=== PATIENT | male | born 1940 | race African-American/Black ===

== ENCOUNTER 2019-07-31 23:22 | Inpatient (IN) ==
[2019-08-01] MEDS ORDERED: ONDANSETRON 4 MG/2 ML VIAL IV PRN (00:34)
[2019-08-01] MEDS ORDERED: ACETAMINOPHEN 325 MG TABLET PO PRN (00:34)
[2019-08-01] MEDS ORDERED: SODIUM POLYSTYRENE SULFATE 15 GM/60 ML BOTTLE PO ONE (01:20)
[2019-08-01] MEDS ORDERED: INFLUENZA VIRUS VACCINE 0.5 ML SYRINGE IM ONE (03:15)
[2019-08-01] MEDS: cefTRIAXone 1,000 MG in SYRINGE 1 EACH IV SCH (03:46)
[2019-08-01 06:04] LABS: Basophils % 0.2 % (0.0-0.8); Eosinophils # 0.2 10*3/uL (0.0-0.87); Eosinophils % 2.4 % (0.00-10.9); Hematocrit 33.9 VOL% (42.0-52.0); Hemoglobin 10.4 GM/DL (14.0-18.0); Immature Granulocytes % 0.2 %; Immature Granulocytes Absolute 0.02 #; Lymphocytes # 1.8 10*3/uL (1.4-4.0); Lymphocytes % 21.8 % (21.2-54.2); Mean Corpuscular HGB Conc 30.7 GM/DL (32-36); Mean Corpuscular Volume 87.4 FL (87-102); Mean Platelet Volume 10.2 FL (9.6-12.0); Monocytes % 12.7 % (1.7-12.7); Neutrophils % 62.7 % (38.7-73.9); Platelet Count 210 T/CUMM (130-400); Red Blood Count 3.88 MC/CUMM (3.8-5.5); Red Cell Distribution Width 15.3 % (9.3-17.3); White Blood Count 8.3 T/CUMM (4-12)
[2019-08-01 06:36] LABS: Albumin 2.7 G/DL (3.4-5.0); Bilirubin,Total 0.7 MG/DL (0.2-1.0); Calcium 9.8 MG/DL (8.5-10.1); Osmolality,Calculated 303.8 MOS/KG (273-304); Total Protein 7.4 G/DL (6.4-8.3)
[2019-08-01] MEDS: ALBUTEROL/IPRATROPIUM 3 ML NEB RESP TX SCH ×3 (07:31→20:09)
[2019-08-01] MEDS: PANTOPRAZOLE 40 MG TABLET PO SCH (08:28)
[2019-08-01] MEDS: predniSONE 20 MG TABLET PO SCH (08:28)
[2019-08-01] MEDS: ENOXAPARIN 40 MG/0.4 ML SYRINGE SUBCUT SCH (08:28)
[2019-08-01] MEDS ORDERED: NITROGLYCERIN SL 0.4 MG TABLET SL PRN (08:44)
[2019-08-01] MEDS: LACTOBACILLUS ACIDOPHILUS/BULGARICUS CAPLET PO SCH ×2 (09:41→20:29)
[2019-08-01] MEDS: LOSARTAN 50 MG TABLET PO SCH (09:41)
[2019-08-01] MEDS: MULTIVITAMIN (CENTRUM) TABLET PO SCH (09:41)
[2019-08-01] MEDS: ASPIRIN EC 81 MG TABLET PO SCH (09:41)
[2019-08-01] MEDS: FERROUS SULFATE 325 MG TABLET PO SCH (09:41)
[2019-08-01] MEDS: CITALOPRAM 20 MG TABLET PO SCH (09:41)
[2019-08-01] MEDS: TAMSULOSIN 0.4 MG CAPSULE PO SCH (09:42)
[2019-08-01] MEDS: amLODIPine 10 MG TABLET PO SCH (09:42)
[2019-08-01] MEDS: MAGNESIUM HYDROXIDE SUSP 30 ML UDCUP PO SCH (09:42)
[2019-08-01] MEDS: POLYETHYLENE GLYCOL POWDER 17 GM PACK PO SCH (09:42)
[2019-08-01] MEDS: GABAPENTIN 100 MG CAPSULE PO SCH ×3 (09:42→20:29)
[2019-08-01] MEDS: FUROSEMIDE 20 MG/2 ML VIAL IV SCH (09:45)
[2019-08-01] MEDS: PIOGLITAZONE 15 MG TABLET PO SCH (10:57)
[2019-08-01] MEDS: KETOCONAZOLE 2% CREAM 30 GM TUBE TOP SCH (10:57)
[2019-08-01] MEDS: MENTHOL/ZINC OXIDE OINT 71 GM JAR TOP SCH ×3 (10:57→20:30)
[2019-08-01] MEDS: MORPHINE 4 MG/1 ML VIAL IV PRN ×2 (11:16→16:18)
[2019-08-01] MEDS ORDERED: GLUCAGON 1 MG VIAL IM PRN (14:52)
[2019-08-01] MEDS ORDERED: DEXTROSE 50% 25 GM/50 ML VIAL IV PRN (14:52)
[2019-08-01] MEDS ORDERED: ALBUTEROL/IPRATROPIUM 3 ML NEB RESP TX PRN (14:56)
[2019-08-01] MEDS ORDERED: ACETIC ACID 0.25% IRRIGATION 1,000 ML BOTTLE IRRIG SCH (15:00)
[2019-08-01] MEDS: INSULIN LISPRO 100 UNIT/ML SUBCUT SCH ×2 (16:17→20:44)
[2019-08-01] MEDS: MEMANTINE 10 MG TABLET PO SCH (20:30)
[2019-08-01] MEDS: ATORVASTATIN 20 MG TABLET PO SCH (20:30)
[2019-08-01] MEDS: DONEPEZIL 5 MG TABLET PO SCH (20:30)
[2019-08-01] MEDS: BUDESONIDE/FORMOTEROL 160-4.5 INHALER 6 GM INH SCH (20:31)
[2019-08-02] MEDS: ALBUTEROL/IPRATROPIUM 3 ML NEB RESP TX SCH ×4 (00:08→19:29)
[2019-08-02 05:39] LABS: Basophils % 0.2 % (0.0-0.8); Eosinophils # 0.1 10*3/uL (0.0-0.87); Eosinophils % 0.9 % (0.00-10.9); Hematocrit 32.1 VOL% (42.0-52.0); Hemoglobin 9.9 GM/DL (14.0-18.0); Immature Granulocytes % 0.2 %; Immature Granulocytes Absolute 0.02 #; Lymphocytes # 1.4 10*3/uL (1.4-4.0); Lymphocytes % 16.6 % (21.2-54.2); Mean Corpuscular HGB Conc 30.8 GM/DL (32-36); Mean Platelet Volume 10.7 FL (9.6-12.0); Monocytes % 11.1 % (1.7-12.7); Platelet Count 203 T/CUMM (130-400); Red Blood Count 3.69 MC/CUMM (3.8-5.5); Red Cell Distribution Width 14.8 % (9.3-17.3); White Blood Count 8.2 T/CUMM (4-12)
[2019-08-02 05:53] LABS: Calcium 9.7 MG/DL (8.5-10.1); Osmolality,Calculated 303.4 MOS/KG (273-304)
[2019-08-02] MEDS: GABAPENTIN 100 MG CAPSULE PO SCH ×3 (08:13→20:54)
[2019-08-02] MEDS: MULTIVITAMIN (CENTRUM) TABLET PO SCH (08:13)
[2019-08-02] MEDS: MEMANTINE 10 MG TABLET PO SCH ×2 (08:13→20:54)
[2019-08-02] MEDS: PIOGLITAZONE 15 MG TABLET PO SCH (08:13)
[2019-08-02] MEDS: PANTOPRAZOLE 40 MG TABLET PO SCH (08:14)
[2019-08-02] MEDS: LEVOTHYROXINE 25 MCG TABLET PO SCH (08:14)
[2019-08-02] MEDS: ASPIRIN EC 81 MG TABLET PO SCH (08:14)
[2019-08-02] MEDS: LOSARTAN 50 MG TABLET PO SCH (08:14)
[2019-08-02] MEDS: LACTOBACILLUS ACIDOPHILUS/BULGARICUS CAPLET PO SCH ×2 (08:14→20:54)
[2019-08-02] MEDS: predniSONE 20 MG TABLET PO SCH (08:14)
[2019-08-02] MEDS: FERROUS SULFATE 325 MG TABLET PO SCH (08:14)
[2019-08-02] MEDS: TAMSULOSIN 0.4 MG CAPSULE PO SCH (08:15)
[2019-08-02] MEDS: POLYETHYLENE GLYCOL POWDER 17 GM PACK PO SCH (08:15)
[2019-08-02] MEDS: amLODIPine 10 MG TABLET PO SCH (08:15)
[2019-08-02] MEDS: INSULIN LISPRO 100 UNIT/ML SUBCUT SCH ×4 (08:15→21:46)
[2019-08-02] MEDS: ENOXAPARIN 40 MG/0.4 ML SYRINGE SUBCUT SCH (08:15)
[2019-08-02] MEDS: MAGNESIUM HYDROXIDE SUSP 30 ML UDCUP PO SCH (08:15)
[2019-08-02] MEDS: BUDESONIDE/FORMOTEROL 160-4.5 INHALER 6 GM INH SCH ×2 (08:19→20:53)
[2019-08-02] MEDS: cefTRIAXone 1,000 MG in SYRINGE 1 EACH IV SCH (08:21)
[2019-08-02] MEDS: MENTHOL/ZINC OXIDE OINT 71 GM JAR TOP SCH ×3 (08:38→20:54)
[2019-08-02] MEDS: ACETIC ACID 0.25% IRRIGATION 1,000 ML BOTTLE IRRIG SCH (08:38)
[2019-08-02] MEDS: KETOCONAZOLE 2% CREAM 30 GM TUBE TOP SCH (08:38)
[2019-08-02] MEDS: FUROSEMIDE 20 MG/2 ML VIAL IV SCH (08:38)
[2019-08-02] MEDS: MORPHINE 4 MG/1 ML VIAL IV PRN (10:01)
[2019-08-02] MEDS ORDERED: BISACODYL 10 MG SUPP RECTAL ONE (14:00)
[2019-08-02] MEDS: ATORVASTATIN 20 MG TABLET PO SCH (20:54)
[2019-08-02] MEDS: DONEPEZIL 5 MG TABLET PO SCH (20:54)
[2019-08-03] MEDS: ALBUTEROL/IPRATROPIUM 3 ML NEB RESP TX SCH ×4 (00:56→20:24)
[2019-08-03] MEDS ORDERED: INSULIN LISPRO 100 UNIT/ML SUBCUT ONE (01:05)
[2019-08-03] MEDS: MORPHINE 4 MG/1 ML VIAL IV PRN (02:50)
[2019-08-03] MEDS ORDERED: INSULIN REGULAR 100 UNIT/ML SUBCUT ONE (03:39)
[2019-08-03 04:31] LABS: Basophils % 0.1 % (0.0-0.8); Eosinophils % 0.4 % (0.00-10.9); Hematocrit 32.2 VOL% (42.0-52.0); Immature Granulocytes % 0.4 %; Immature Granulocytes Absolute 0.03 #; Lymphocytes # 0.9 10*3/uL (1.4-4.0); Lymphocytes % 12.1 % (21.2-54.2); Mean Corpuscular HGB Conc 31.1 GM/DL (32-36); Mean Corpuscular Volume 87.7 FL (87-102); Monocytes % 8.8 % (1.7-12.7); Neutrophils % 78.2 % (38.7-73.9); Platelet Count 193 T/CUMM (130-400); Red Blood Count 3.67 MC/CUMM (3.8-5.5); Red Cell Distribution Width 14.6 % (9.3-17.3); White Blood Count 7.5 T/CUMM (4-12)
[2019-08-03 04:51] LABS: Calcium 9.9 MG/DL (8.5-10.1); Osmolality,Calculated 309.5 MOS/KG (273-304)
[2019-08-03] MEDS: LEVOTHYROXINE 25 MCG TABLET PO SCH (06:34)
[2019-08-03] MEDS: MAGNESIUM HYDROXIDE SUSP 30 ML UDCUP PO SCH (08:19)
[2019-08-03] MEDS: MULTIVITAMIN (CENTRUM) TABLET PO SCH (08:20)
[2019-08-03] MEDS: ASPIRIN EC 81 MG TABLET PO SCH (08:20)
[2019-08-03] MEDS: predniSONE 20 MG TABLET PO SCH (08:20)
[2019-08-03] MEDS: FERROUS SULFATE 325 MG TABLET PO SCH (08:20)
[2019-08-03] MEDS: LOSARTAN 50 MG TABLET PO SCH (08:20)
[2019-08-03] MEDS: amLODIPine 10 MG TABLET PO SCH (08:20)
[2019-08-03] MEDS: POLYETHYLENE GLYCOL POWDER 17 GM PACK PO SCH (08:20)
[2019-08-03] MEDS: PIOGLITAZONE 15 MG TABLET PO SCH (08:21)
[2019-08-03] MEDS: PANTOPRAZOLE 40 MG TABLET PO SCH (08:21)
[2019-08-03] MEDS: TAMSULOSIN 0.4 MG CAPSULE PO SCH (08:21)
[2019-08-03] MEDS: LACTOBACILLUS ACIDOPHILUS/BULGARICUS CAPLET PO SCH ×2 (08:21→21:04)
[2019-08-03] MEDS: GABAPENTIN 100 MG CAPSULE PO SCH ×3 (08:21→21:04)
[2019-08-03] MEDS: MEMANTINE 10 MG TABLET PO SCH ×2 (08:21→21:04)
[2019-08-03] MEDS: BUDESONIDE/FORMOTEROL 160-4.5 INHALER 6 GM INH SCH ×2 (08:27→21:03)
[2019-08-03] MEDS: ENOXAPARIN 40 MG/0.4 ML SYRINGE SUBCUT SCH (08:27)
[2019-08-03] MEDS: MENTHOL/ZINC OXIDE OINT 71 GM JAR TOP SCH ×3 (08:29→21:06)
[2019-08-03] MEDS: INSULIN REGULAR 100 UNIT/ML SUBCUT SCH ×4 (08:29→21:05)
[2019-08-03] MEDS: ACETIC ACID 0.25% IRRIGATION 1,000 ML BOTTLE IRRIG SCH (08:29)
[2019-08-03] MEDS: CITALOPRAM 20 MG TABLET PO SCH (08:29)
[2019-08-03] MEDS: FUROSEMIDE 20 MG/2 ML VIAL IV SCH (08:30)
[2019-08-03] MEDS: cefTRIAXone 1,000 MG in SYRINGE 1 EACH IV SCH (08:31)
[2019-08-03] MEDS: KETOCONAZOLE 2% CREAM 30 GM TUBE TOP SCH (08:34)
[2019-08-03] MEDS ORDERED: LACTULOSE 20 GM/30 ML UDCUP PO ONE (10:09)
[2019-08-03] MEDS ORDERED: SODIUM POLYSTYRENE SULFATE 15 GM/60 ML BOTTLE PO STA (10:35)
[2019-08-03] MEDS: methylPREDNISolone SOD SUC 40 MG/1 ML VIAL IV SCH ×2 (11:16→23:21)
[2019-08-03] MEDS: INSULIN LISPRO 100 UNIT/ML SUBCUT SCH ×2 (12:10→16:26)
[2019-08-03] MEDS ORDERED: INSULIN GLARGINE 100 UNIT/ML SUBCUT SCH (21:00)
[2019-08-03] MEDS: ATORVASTATIN 20 MG TABLET PO SCH (21:04)
[2019-08-03] MEDS: DONEPEZIL 5 MG TABLET PO SCH (21:04)
[2019-08-04] MEDS: ALBUTEROL/IPRATROPIUM 3 ML NEB RESP TX SCH ×4 (00:05→20:14)
[2019-08-04 05:34] LABS: Calcium 9.5 MG/DL (8.5-10.1); Osmolality,Calculated 296.8 MOS/KG (273-304)
[2019-08-04] MEDS: LEVOTHYROXINE 25 MCG TABLET PO SCH (07:07)
[2019-08-04] MEDS ORDERED: ERGOCALCIFEROL 50,000 UNIT CAPSULE PO SCH (09:00)
[2019-08-04 09:08] LABS: Calcium 9.3 MG/DL (8.5-10.1); Osmolality,Calculated 301.8 MOS/KG (273-304)
[2019-08-04] MEDS: INSULIN REGULAR 100 UNIT/ML SUBCUT SCH ×4 (10:04→21:08)
[2019-08-04] MEDS: cefTRIAXone 1,000 MG in SYRINGE 1 EACH IV SCH ×2 (10:05→10:53)
[2019-08-04] MEDS: INSULIN LISPRO 100 UNIT/ML SUBCUT SCH ×3 (10:05→16:27)
[2019-08-04] MEDS: FUROSEMIDE 20 MG/2 ML VIAL IV SCH ×2 (10:05→10:53)
[2019-08-04] MEDS: methylPREDNISolone SOD SUC 40 MG/1 ML VIAL IV SCH ×3 (10:05→21:08)
[2019-08-04] MEDS: LACTOBACILLUS ACIDOPHILUS/BULGARICUS CAPLET PO SCH ×2 (10:06→21:09)
[2019-08-04] MEDS: POLYETHYLENE GLYCOL POWDER 17 GM PACK PO SCH (10:06)
[2019-08-04] MEDS: ASPIRIN EC 81 MG TABLET PO SCH (10:06)
[2019-08-04] MEDS: ENOXAPARIN 40 MG/0.4 ML SYRINGE SUBCUT SCH (10:06)
[2019-08-04] MEDS: BUDESONIDE/FORMOTEROL 160-4.5 INHALER 6 GM INH SCH ×2 (10:06→21:08)
[2019-08-04] MEDS: FERROUS SULFATE 325 MG TABLET PO SCH (10:07)
[2019-08-04] MEDS: amLODIPine 10 MG TABLET PO SCH (10:07)
[2019-08-04] MEDS: LOSARTAN 50 MG TABLET PO SCH (10:07)
[2019-08-04] MEDS: MULTIVITAMIN (CENTRUM) TABLET PO SCH (10:07)
[2019-08-04] MEDS: GABAPENTIN 100 MG CAPSULE PO SCH ×3 (10:07→21:09)
[2019-08-04] MEDS: PANTOPRAZOLE 40 MG TABLET PO SCH (10:07)
[2019-08-04] MEDS: KETOCONAZOLE 2% CREAM 30 GM TUBE TOP SCH (10:08)
[2019-08-04] MEDS: TAMSULOSIN 0.4 MG CAPSULE PO SCH (10:08)
[2019-08-04] MEDS: PIOGLITAZONE 15 MG TABLET PO SCH (10:08)
[2019-08-04] MEDS: MEMANTINE 10 MG TABLET PO SCH ×2 (10:08→21:09)
[2019-08-04] MEDS: MAGNESIUM HYDROXIDE SUSP 30 ML UDCUP PO SCH (10:08)
[2019-08-04] MEDS: MENTHOL/ZINC OXIDE OINT 71 GM JAR TOP SCH ×3 (10:19→21:10)
[2019-08-04] MEDS ORDERED: INSULIN GLARGINE 100 UNIT/ML SUBCUT SCH ×2 (12:12→21:00)
[2019-08-04] MEDS: MORPHINE 4 MG/1 ML VIAL IV PRN (14:15)
[2019-08-04] MEDS: ACETIC ACID 0.25% IRRIGATION 1,000 ML BOTTLE IRRIG SCH (14:50)
[2019-08-04] MEDS: ATORVASTATIN 20 MG TABLET PO SCH (21:09)
[2019-08-04] MEDS: DONEPEZIL 5 MG TABLET PO SCH (21:09)
[2019-08-05] MEDS: ALBUTEROL/IPRATROPIUM 3 ML NEB RESP TX SCH ×3 (01:32→13:19)
[2019-08-05 05:35] LABS: Calcium 9.5 MG/DL (8.5-10.1); Osmolality,Calculated 298.8 MOS/KG (273-304)
[2019-08-05 05:42] LABS: Hematocrit 32.4 VOL% (42.0-52.0); Hemoglobin 10.1 GM/DL (14.0-18.0); Immature Granulocytes % 0.4 %; Immature Granulocytes Absolute 0.03 #; Lymphocytes # 0.7 10*3/uL (1.4-4.0); Lymphocytes % 8.7 % (21.2-54.2); Mean Corpuscular HGB Conc 31.2 GM/DL (32-36); Mean Corpuscular Volume 85.7 FL (87-102); Mean Platelet Volume 10.5 FL (9.6-12.0); Monocytes % 8.9 % (1.7-12.7); Platelet Count 189 T/CUMM (130-400); Red Blood Count 3.78 MC/CUMM (3.8-5.5); Red Cell Distribution Width 14.6 % (9.3-17.3); White Blood Count 8.5 T/CUMM (4-12)
[2019-08-05] MEDS: LEVOTHYROXINE 25 MCG TABLET PO SCH (06:21)
[2019-08-05] MEDS ORDERED: SODIUM POLYSTYRENE SULFATE 15 GM/60 ML BOTTLE PO STA (07:43)
[2019-08-05] MEDS: INSULIN REGULAR 100 UNIT/ML SUBCUT SCH ×2 (08:40→14:31)
[2019-08-05] MEDS: INSULIN LISPRO 100 UNIT/ML SUBCUT SCH ×2 (08:40→12:46)
[2019-08-05] MEDS: ENOXAPARIN 40 MG/0.4 ML SYRINGE SUBCUT SCH (08:41)
[2019-08-05] MEDS: MAGNESIUM HYDROXIDE SUSP 30 ML UDCUP PO SCH (08:41)
[2019-08-05] MEDS: PIOGLITAZONE 15 MG TABLET PO SCH (08:41)
[2019-08-05] MEDS: POLYETHYLENE GLYCOL POWDER 17 GM PACK PO SCH (08:41)
[2019-08-05] MEDS: ASPIRIN EC 81 MG TABLET PO SCH (08:42)
[2019-08-05] MEDS: TAMSULOSIN 0.4 MG CAPSULE PO SCH (08:42)
[2019-08-05] MEDS: PANTOPRAZOLE 40 MG TABLET PO SCH (08:42)
[2019-08-05] MEDS: GABAPENTIN 100 MG CAPSULE PO SCH ×2 (08:42→16:17)
[2019-08-05] MEDS: LACTOBACILLUS ACIDOPHILUS/BULGARICUS CAPLET PO SCH (08:42)
[2019-08-05] MEDS: MEMANTINE 10 MG TABLET PO SCH (08:42)
[2019-08-05] MEDS: MULTIVITAMIN (CENTRUM) TABLET PO SCH (08:42)
[2019-08-05] MEDS: LOSARTAN 50 MG TABLET PO SCH (08:42)
[2019-08-05] MEDS: CITALOPRAM 20 MG TABLET PO SCH (08:42)
[2019-08-05] MEDS: amLODIPine 10 MG TABLET PO SCH (08:43)
[2019-08-05] MEDS: FERROUS SULFATE 325 MG TABLET PO SCH (08:43)
[2019-08-05] MEDS: methylPREDNISolone SOD SUC 40 MG/1 ML VIAL IV SCH (08:53)
[2019-08-05] MEDS: FUROSEMIDE 20 MG/2 ML VIAL IV SCH (08:54)
[2019-08-05] MEDS: cefTRIAXone 1,000 MG in SYRINGE 1 EACH IV SCH (08:54)
[2019-08-05] MEDS: MENTHOL/ZINC OXIDE OINT 71 GM JAR TOP SCH ×2 (09:04→16:17)
[2019-08-05] MEDS: KETOCONAZOLE 2% CREAM 30 GM TUBE TOP SCH (09:04)
[2019-08-05] MEDS ORDERED: INSULIN REGULAR 100 UNIT/ML IV ONE (09:23)
[2019-08-05] MEDS ORDERED: CALCIUM GLUCONATE 1,000 MG in SODIUM CHLORIDE 0.9% 100 ML IV ONE (09:33)
[2019-08-05] MEDS: BUDESONIDE/FORMOTEROL 160-4.5 INHALER 6 GM INH SCH (10:54)
[2019-08-05 12:52] VITALS: BP 141/51
[2019-08-05] MEDS: ACETIC ACID 0.25% IRRIGATION 1,000 ML BOTTLE IRRIG SCH (14:31)
== END 2019-08-05 16:17 | DRG 291 ==
LOC: N.2E 08-01 00:21 → SUATTDRO 08-01 00:21
PROVIDERS: ADMIT Internal Medicine; ATTEND Internal Medicine